=== PATIENT | female | born 1980 ===

== ENCOUNTER 2023-06-11 20:40 | Emergency (ER) | payer BC ==
[2023-06-11] MEDS ORDERED: Meclizine 25 MG Tab PO ONE (21:21)
[2023-06-11] MEDS ORDERED: Ketorolac 30 MG/ML SDV IM STA (21:21)
[2023-06-11] MEDS ORDERED: Ondansetron 4 MG Tab.DIS PO ONE (21:21)
[2023-06-11 21:56] LABS: BASOPHILS PERCENT AUTO 0.1 % (0.2-1.5); EOSINOPHILS PERCENT AUTO 0.2 % (0.6-8.1); HEMOGLOBIN 14.6 g/dL (11.4-15.5); MEAN CORPUSCULAR HEMOGLOBIN 30.2 pg (23.9-33.9); MEAN CORPUSCULAR HGB CONC 33.2 g/dL (31.9-34.8); MEAN PLATELET VOLUME 7.6 fL (7.1-12.4); MONOCYTES ABSOLUTE AUTO 0.9 x10-3/uL (0.3-1.0); MONOCYTES PERCENT AUTO 5.5 % (4.4-15.7); NEUTROPHILS ABSOLUTE AUTO 14.3 x10-3/uL (1.5-6.3); NEUTROPHILS PERCENT AUTO 88.2 % (30.8-76.2); PLATELET COUNT,PLT 312 x10(3)uL (151-488); RED BLOOD CELL COUNT 4.83 x10(6)uL (3.60-5.20); RED CELL DISTRIBUTION WIDTH 13.8 % (12.3-16.5); WHITE BLOOD CELL COUNT,WBC 16.3 x10-3/uL (3.0-10.3)
[2023-06-11 22:13] LABS: BLOOD UREA NITROGEN,BUN 16 mg/dL (7-18); BUN/CREATININE RATIO 17.8 (9-20); CARBON DIOXIDE,CO2 28 mmol/L (21-32); CHLORIDE,CL 103 mmol/L (100-110); CREATININE 0.9 mg/dL (0.55-1.02); EST CRCL DRUG DOSING (CG) 77.57 mL/min; ESTIMATED GFR 81 mL/min (>60); GLUCOSE RANDOM 110 mg/dL (80-116); POTASSIUM,K 3.8 mmol/L (3.5-5.3); SODIUM,NA 138 mmol/L (135-145)
[2023-06-11 22:14] LABS: ALANINE AMINOTRANSFERASE,ALT 30 U/L (12-36); ALBUMIN 3.8 g/dL (3.5-5.2); ALKALINE PHOSPHATASE 62 IU/L (56-112); ASPARTATE AMNIOTRANSFERASE,AST 24 IU/L (5-25); BILIRUBIN TOTAL 0.3 mg/dL (0.1-1.3); PROTEIN TOTAL,TP 7.5 g/dL (6.0-8.0)
[2023-06-11 22:50] VITALS: BP 116/72; PULSE 50
== END 2023-06-11 22:38 | disposition home or self-care (01) ==
LOC: FB.ED 20:40
DX: J06.9 Acute upper respiratory infection, unspecified (principal); R51.9 Headache, unspecified; H81.10 Benign paroxysmal vertigo, unspecified ear; Z88.0 Allergy status to penicillin
CPT/HCPCS: 36415; 80053; 85025; 93005; 96372; 99284; A9270; J1885; Q0162